=== PATIENT | male | born 2000 | race Caucasian/White ===

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

== ENCOUNTER 2021-03-20 04:29 | Day surgery (SDC) | payer OTHER ==
[2021-03-19 15:06] VITALS: BMI 23.0
[2021-03-20] MEDS ORDERED: LIDOCAINE HCL 1%, 10 MG/ML (20ML VIAL) ONE (10:29)
[2021-03-20] MEDS ORDERED: MIDAZOLAM HCL 2 MG/2 ML SINGLE DOSE VIAL ONE (10:58)
[2021-03-20] MEDS ORDERED: BUPIVACAINE HCL/PF 0.5% (5 MG/ML) 30 ML VIAL IJ ONE ×2 (11:04→11:11)
[2021-03-20] MEDS ORDERED: LIDOCAINE HCL 1%, 10 MG/ML (50 mL VIAL) INF ONE ×2 (11:04→11:11)
[2021-03-20 15:53] VITALS: BP 107/57; PULSE 75; TEMP 98.3
== END 2021-03-20 16:00 | disposition home or self-care (01) ==
LOC: JASU-SURG 04:29
PROVIDERS: ATTEND Podiatrist Foot & Ankle Surgery
PROC: 0JBQ0ZZ Excision of Right Foot Subcutaneous Tissue and Fascia, Open Approach (ICD-10-PCS; principal; 2021-03-20 09:00)
DX: D48.1 Neoplasm of uncertain behavior of connective and other soft tissue (principal)
CPT/HCPCS: 88307-TC; 94760